=== PATIENT | female | born 1955 | race American Indian/Alaskan Native ===

== ENCOUNTER 2020-10-15 08:03 | Emergency (ER) | payer MEDICARE ==
[2020-10-15 08:19] VITALS: BP 146/84
--- NOTE | 2020-10-15 08:43 | Event Note ---
ED Screening Note Date of service: 10/15/20 Time: 08:43 ED Screening Note: 64-year-old -[place] female presents to the emergency room stating that she received a call from her doctor that she needed to follow-up in the emergency room asked her to blood was low. Patient states she had blood draw on Monday and received a call on Monday to go to the emergency room. Patient reports that she feels fine she denies any chest pain shortness of breathing no blood in her stool. Patient states she is menopausal. She has a past medical history of hypertension cholesterolemia history of stroke with 7 aneurysms. Patient is wheelchair-bound. She denies ever having a colonoscopy. Her doctor is at [facility]. This initial assessment/diagnostic orders/clinical plan/treatment(s) is/are subject to change based on patients health status, clinical progression and re- assessment by fellow clinical providers in the ED. Further treatment and workup at subsequent clinical providers discretion. Patient/guardian urged not to elope from the ED as their condition may be serious if not clinically assessed and managed. Initial orders include: CBC CMP type and screen
[2020-10-15 09:59] LABS: Mean Corpuscular HGB Conc 28 % (30-34); Platelet Count 519 K/mm3 (140-440); Red Blood Count 3.84 M/mm3 (3.65-5.03)
[2020-10-15 10:17] LABS: Albumin 3.8 g/dL (3.9-5); Blood Urea Nitrogen 9 mg/dL (7-17); Calcium 9.5 mg/dL (8.4-10.2); Hemolysis Index 1
[2020-10-15 10:20] LABS: Alanine Aminotransferase < 5 units/L (7-56); BUN/Creatinine Ratio 18
[2020-10-15 10:32] LABS: Hemoglobin 6.7 gm/dl (10.1-14.3); Mean Corpuscular Volume 63 fl (79-97); Red Cell Distribution Width 20.8 % (13.2-15.2)
--- NOTE | 2020-10-15 12:02 | Event Note ---
I attempted to call pt from waiting room for evaluation. No response. Chart left with triage nurse to continue to call for patient to see if there is response for treatment
[2020-10-15 17:13] LABS: Band Neutrophils # (Manual) 0.1 K/mm3; Total Cells Counted 100
[2020-10-15 17:14] LABS: Anisocytosis 3+; Hypochromasia 2+; Macrocytosis 1+; Target Cells 1+
[2020-10-15 17:15] LABS: Ovalocytes 2+; Platelet Estimate Consistent w Auto
== END 2020-10-15 13:46 | disposition left against medical advice (07) ==
LOC: ED 08:03
DX: R03.1 Nonspecific low blood-pressure reading (principal); Z53.21 Procedure and treatment not carried out due to patient leaving prior to being seen by health care provider
CPT/HCPCS: 36415; 80053; 85007; 85025; 86850; 86900; 86901